=== PATIENT | male | born 1940 | race Caucasian/White ===

== ENCOUNTER → 2016-09-17 | Outpatient (CLI) | payer MEDICARE, OTHER ==
[~2016-09-17] MED LIST: ALEVE PM CAPLE1 EACH PO; FLOMAX0.4 MG PO; FLUVOXAMINE MA100 MG PO; HALDOL5 MG PO; HYDROCODON-ACE1 EAC4 PO; LORAZEPAM0.5 MG PO; MIRALAX17 GM PO; SENNA8.6 MG PO; SEROQUEL200 MG PO; TYLENOL325 MG PO; ULTRAM50 MG PO; WELLBUTRIN100 MG PO
[2016-09-17 13:24] LABS: BASOPHIL % 0.2 %; EOSINOPHIL % 0.4 %; HEMATOCRIT 39.4 % (37.0-53.0); IMMATURE GRANULOCYTE % 0.4 %; LYMPHOCYTE # 1.3 K/uL (0.8-4.0); LYMPHOCYTE % 26.5 %; MCH 30.5 pg (27.0-34.0); MCV 92.5 fl (83.0-98.0); MONOCYTE # 0.6 K/uL (0.0-1.0); MONOCYTE % 12.2 %; MPV 12.2 fl (9.4-12.4); NEUTROPHIL % 60.3 %; NRBC % 0 /100WBC (0-0.00); PLATELET COUNT 184 K/uL (150-450); RBC 4.26 M/uL (3.50-5.50); RDW-CV 13.6 % (11.9-14.6)
== END | disposition disaster alternative care site (69) ==
LOC: GLAB 12:38 → GRAD 13:30
PROVIDERS: Physician Assistant
DX: M25.571 Pain in right ankle and joints of right foot (principal); M25.471 Effusion, right ankle

== ENCOUNTER 2016-10-23 07:01 | Inpatient (IN) | payer MEDICARE, OTHER ==
[~2016-10-23] VITALS: Ht 177.8 cm; Wt 91.3 kg
--- NOTE | ~2016-10-23 | OR ---
PATIENT'S NAME: FABIAN TORRES [facility] AGE: 75 Y [address] ROOM: [address] [address] LOCATION: [facility] ADMIT DATE: 10/23/2016 OR/Procedure Report DISCHARGE DATE: FAMILY PHYSICIAN: Jose Styles MD ATTENDING PHYSICIAN: Dwaine Urrutia SURGEON: Dwaine Urrutia MD SUPERVISOR BENZENE REFINING: YUN Cornejo. DATE OF PROCEDURE: 10/23/2016 PREOPERATIVE DIAGNOSIS: Nonunion of the fusion, right ankle. POSTOPERATIVE DIAGNOSIS: Pseudarthrosis, right ankle fusion. OPERATION: Debridement, irrigation, and provisional fixation of right ankle fusion. ANESTHESIA: Subarachnoid block. 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 However, the patient continued to have pain and it appeared that the fusion did not take. The main 7.3 screws especially on the medial side had backed out and one of the transverse screws was bent or broken. It was opted to attempt to refuse this with a sliding bone graft. The patient had been having quite a bit of difficulty nonweightbearing at the first 6 weeks after his fusion partly to weakness in his nonoperative side and perhaps a little dementia. DESCRIPTION OF PROCEDURE: The patient was brought to the operating room and when satisfactory spinal anesthesia had been established, his right lower extremity was prepped and draped in an aseptic manner. The extremity was exsanguinated with elevation and pneumatic tourniquet inflated to 275 mmHg around the upper thigh. The tourniquet was up for an hour and then was let down. The anteromedial incision was approached first and an incision made in the scar and carried down through the thick swollen edematous tissue to bone. The anteromedial distal tibia and talus were exposed and the screw exposed. The screw was quite loose and cultures were taken from around it. The screw was backed out and joint fluid came out with the screw. There was actually a gap between the medial malleolus and the talus of probably a centimeter and a half worth fluid in it. This was all debrided out. The lateral incision was then made in the previous scar and carried down to the bone. The onlay graft of the lateral malleolus was loose and has gross motion there as well as gross motion at the tibiotalar joint. The 7.3 cannulated screw was exposed and it was removed. It too was loose. The two 4.5 cannulated screws crossing through the lateral malleolar onlay graft were removed, the proximal one being PATIENT'S NAME: FABIAN TORRES [facility] AGE: 75 Y [address] ROOM: [address] [address] LOCATION: [facility] ADMIT DATE: 10/23/2016 OR/Procedure Report DISCHARGE DATE: FAMILY PHYSICIAN: Jose Styles MD ATTENDING PHYSICIAN: Dwaine Urruita. The lateral malleolar fragment was then debrided and we cut with osteotome and mallet and rongeur and curettes were used to clear out the fibrous tissue. The talus was then recut with an osteotome and the tibia was recut with an osteotome. A saw was used to resect the distal 2 cm of the medial malleolus and also the lateral malleolar fragment had to be resected as well in order to be an onlay graft on the tibiotalar fusion. When recutting and reshaping of the talus and tibia had been done, the joint was visualized with the C-arm and it actually came together quite nicely. However, it was thought that failure of the fusion was most likely because the patient had walked on the construct too soon because he was unable to not walk on it. At this point, it was thought that the best treatment would be a calcaneal tibiotalar nail that would allow weightbearing. Even though it would sacrifice motion at the subtalar joint, the allowance for weightbearing would offset that disadvantage since the patient probably is not going to ambulate in the future on uneven surfaces. Therefore, it was opted to perform a provisional fixation. Two 4.0 cannulated screws were placed through the lateral malleolar onlay graft, one into the tibia and one into the talus. Another 4.5 cannulated screw was placed medially from the medial malleolar area into the talus. This actually gave a nicely aligned construct. The bone that had been resected was then packed into the screw holes the tibiotalar fusion. The thick edematous tissue subcutaneously was closed with running 0 Vicryl on both sides. Skin was closed with skin stuart. Dressings and posterior stirrup splints were applied. The patient was then sent to recovery area having tolerated the procedure well. MD JANUSZ DOMINGO/sonia /[id number] d: 10/23/16 1854 t: 10/25/16 1649, OPERATIVE SUMMARY
--- NOTE | ~2016-10-23 | OR ---
PATIENT'S NAME: FABIAN TORRES [facility] AGE: 76 Y [address] ROOM: [address] [address] LOCATION: [facility] [place] ADMIT DATE: 10/23/2016 OR/Procedure Report DISCHARGE DATE: 11/01/2016 FAMILY PHYSICIAN: Jose Styles MD ATTENDING PHYSICIAN: Dwaine Urrutia SURGEON: Dwaine Urrutia MD RURAL CARRIER ASSOCIATE: YUN Cornejo DATE OF PROCEDURE: 10/30/2016 CORRECTED PATIENT ACCOUNT INFORMATION 11/19/2016 AO PREOPERATIVE DIAGNOSIS: Failed right ankle fusion. POSTOPERATIVE DIAGNOSIS: Failed right ankle fusion. OPERATION PERFORMED: Re-fusion of subtalar and tibiotalar joints with hindfoot fusion nail. ANESTHESIA: General, ET tube. INDICATIONS: This is a 75-year-old slightly demented male who had a tibiotalar fusion for his degenerative joint disease of his right ankle about 4 or 5 months ago. It failed, and it was thought at first that a simple redo of the tibiotalar fusion would work, but at operation a week ago, he was found to have the fusion totally loose with a pseudarthrosis at the tibiotalar joint. This was thought to be because he had been walking on his fusion too soon due to his mild dementia. It was felt that a hindfoot fusion nail and allowing him weightbearing as tolerated would be a reasonable treatment plan. DESCRIPTION OF PROCEDURE: The patient was brought to the operating room, and when a satisfactory general anesthesia had been established, he was transferred to the fracture table where he was placed prone. His right lower extremity was prepped and draped in an aseptic manner. It was exsanguinated with elevation, and pneumatic tourniquet inflated to 300 mmHg around the upper thigh. The tourniquet was deflated at 1 hour of tourniquet time. The lateral wound was reopened. A guidepin from the hindfoot arthrodesis set was then drilled from the calcaneus into the center of the talus and into the tibia in order to maintain position. The 2 screws from the onlay fibular graft were then removed and the fibular onlay retracted posteriorly. The subtalar joint was then found and articular cartilage debrided with a power akilah and ring curettes. Once the subtalar joint had been cleared, the heel was impacted, and it did seem to close off the joint nicely. With the guidepin in place, a hole was then drilled through the calcaneus and the talus. This was a 13 mm hole. The hindfoot was then placed into varus and inverted, and the guidepin drilled up into the tibia. It was exchanged for a reaming calvin, and position of the reaming calvin was checked and appeared to be centered satisfactorily in the talus and tibia. The reaming calvin was over-reamed up to 13 mm. A 12 mm x PATIENT'S NAME: FABIAN TORRES [facility] AGE: 76 Y [address] ROOM: [place] [address] LOCATION: [facility] [place] ADMIT DATE: 10/23/2016 OR/Procedure Report DISCHARGE DATE: 11/01/2016 FAMILY PHYSICIAN: Jose Styles MD ATTENDING PHYSICIAN: Dwaine Urrutia 180 long hindfoot arthrodesis nail was then impacted up the tibia. The guide was used then to place two 5.0 locking screws across the calcaneus. The talar hole was left unfilled. The guide was then used to place a medial proximal interlocking screw and the dynamic screw hole. Position of the implants was checked and accepted. One of the 4.5 cannulated screws was then replaced in the fibular onlay graft, and this tightened down nicely. Position of all the implants was checked and accepted. Bone graft was packed into the subtalar joint and tibiotalar fusion. The wound was then closed with a running 2-0 Vicryl for the subcutaneous tissue and skin stuart for the skin. This was done by YUN Mathis. Dressings were applied, and the patient awakened and sent to the recovery area, having tolerated the procedure well. MD JANUSZ DOMINGO/modl /[id number] CORRECTED PATIENT ACCOUNT INFORMATION 11/19/2016 AO d: 10/30/16 1658 t: 11/20/16 0739, OPERATIVE SUMMARY
--- NOTE | ~2016-10-23 | DS ---
PATIENT'S NAME: FABIAN TORRES [facility] AGE: 76 Y [address] ROOM: [address] [address] [place] [facility] [place] ADMIT DATE: 10/23/2016 Discharge Summary DISCHARGE DATE: 11/01/2016 FAMILY PHYSICIAN: Jose Styles MD ATTENDING PHYSICIAN: Dwaine Urrutia ADMITTING DIAGNOSIS: Failed ankle fusion. PROCEDURE: Hindfoot fusion with nail. HOSPITAL COURSE: The patient was admitted. A 2-stage hindfoot ankle fusion was performed with removal of the old hardware. Hospitalist consult was obtained. The patient was made nonweightbearing on the right ankle in between the staged procedures. The patient was put on Xarelto 10 mg p.o. daily for postoperative DVT prophylaxis. Postop day 2, he had some moderate pain. Splint was intact. The patient was made n.p.o. again and the formal hindfoot fusion was performed with an indwelling nail. Xarelto was held. Ancef 2 g was used preoperatively for standard prophylaxis. A 12-mm hindfoot nail was inserted. The patient was made weightbearing as tolerated after the nail was placed. Postoperatively, boot walker was ordered. FINISHING DEPARTMENT SUPERVISOR is intact to the operative right foot. Tubbs catheter was removed on postop day 2. Wound nurses were consulted regarding some sacral redness. Arrangements were made for the patient to be transferred to the long-term. DISCHARGE INSTRUCTIONS: Weight bear as tolerated. O2 titrated per nasal cannula. Keep sats above 90%. OT, PT as tolerated. Follow up with Dr. Styles in 5 to 7 days. Follow up with us in 2 weeks. COMORBIDITIES: Hypertension, COPD, bipolar, chronic constipation, chronic hypoxic respiratory failure, and BPH. YUN JAY FOR MD ANEGLICA DOMINGO/calebl /[id number] d: 11/28/16 0401 t: 12/11/16 1243, DISCHARGE SUMMARY
[2016-10-28 20:06] LABS: BASOPHIL % 0.1 %; EOSINOPHIL % 0.3 %; HEMOGLOBIN 10.2 g/dL (11.0-16.0); IMMATURE GRANULOCYTE % 0.4 %; LYMPHOCYTE # 1.5 K/uL (0.8-4.0); LYMPHOCYTE % 22.6 %; MCH 30.6 pg (27.0-34.0); MONOCYTE % 14.7 %; MPV 12.1 fl (9.4-12.4); NEUTROPHIL # (ANC) 4.2 K/uL (1.4-9.0); NEUTROPHIL % 61.9 %; NRBC % 0 /100WBC (0-0.00); RBC 3.33 M/uL (3.50-5.50); RDW-CV 13.2 % (11.9-14.6); WBC 6.8 K/uL (4.0-11.0)
[2016-10-28 20:07] LABS: HEMATOCRIT 30.3 % (37.0-53.0); MCHC 33.7 gm/dL (32.0-36.5); PLATELET COUNT 222 K/uL (150-450)
[2016-10-30 05:02] LABS: BASOPHIL % 0.2 %; EOSINOPHIL % 0.6 %; HEMATOCRIT 31.2 % (37.0-53.0); HEMOGLOBIN 10.5 g/dL (11.0-16.0); IMMATURE GRANULOCYTE % 0.2 %; LYMPHOCYTE % 38.1 %; MCH 30.9 pg (27.0-34.0); MCHC 33.7 gm/dL (32.0-36.5); MCV 91.8 fl (83.0-98.0); MONOCYTE # 1.1 K/uL (0.0-1.0); MONOCYTE % 21.3 %; MPV 11.9 fl (9.4-12.4); NEUTROPHIL # (ANC) 2.1 K/uL (1.4-9.0); NEUTROPHIL % 39.6 %; NRBC % 0 /100WBC (0-0.00); PLATELET COUNT 229 K/uL (150-450); RDW-CV 13.3 % (11.9-14.6); WBC 5.2 K/uL (4.0-11.0)
[2016-10-30 05:14] LABS: INR - (THERAPEUTIC) 1.02 (0.92-1.07); PROTIME 10.7 SECONDS (9.8-11.4); PTT 27 SECONDS (25-32)
[2016-10-30 19:15] LABS: HEMATOCRIT 28.9 % (37.0-53.0); HEMOGLOBIN 9.7 g/dL (11.0-16.0)
[2016-10-31 05:31] LABS: HEMATOCRIT 27.4 % (37.0-53.0); HEMOGLOBIN 9.1 g/dL (11.0-16.0); MCH 30.5 pg (27.0-34.0); MCHC 33.2 gm/dL (32.0-36.5); MCV 91.9 fl (83.0-98.0); MPV 11.7 fl (9.4-12.4); PLATELET COUNT 226 K/uL (150-450); RBC 2.98 M/uL (3.50-5.50); RDW-CV 13.4 % (11.9-14.6); WBC 7.4 K/uL (4.0-11.0)
[2016-10-31 06:06] LABS: ABSOLUTE NEUTROPHIL CT (ANC) 3.3 K/uL (1.4-9.0); BANDED NEUTROPHIL # 0.2 K/uL (0.0-0.1); BANDED NEUTROPHILS % 3 %; LYMPHOCYTE # 2.6 K/uL (0.8-4.0); LYMPHOCYTE % 35 %; MONOCYTE # 1.4 K/uL (0.0-1.0); SEGMENTED NEUTROPHIL # 3.1 K/uL (1.4-9.0); SEGMENTED NEUTROPHIL % 42 %
== END 2016-11-01 12:25 | DRG 493 ==
LOC: GSDC 07:01 → G3N 07:01 → GPOC 11:00 → G3N 14:10 → GSDC 14:11 → G3N 14:11 → GMSU 10-25 16:42
PROVIDERS: Internal Medicine; ADMIT Orthopaedic Surgery
PROC: 0SHF04Z Insertion of Internal Fixation Device into Right Ankle Joint, Open Approach (ICD-10-PCS; principal; 2016-10-23)
PROC: 0SPF04Z Removal of Internal Fixation Device from Right Ankle Joint, Open Approach (ICD-10-PCS; principal; 2016-10-23)
PROC: 0SGF04Z Fusion of Right Ankle Joint with Internal Fixation Device, Open Approach (ICD-10-PCS; principal; 2016-10-23)
DX: M96.0 Pseudarthrosis after fusion or arthrodesis (principal); J96.11 Chronic respiratory failure with hypoxia; J44.9 Chronic obstructive pulmonary disease, unspecified; I10 Essential (primary) hypertension; Y83.1 Surgical operation with implant of artificial internal device as the cause of abnormal reaction of the patient, or of later complication, without mention of misadventure at the time of the procedure; E66.9 Obesity, unspecified; F31.9 Bipolar disorder, unspecified; F42.9 Obsessive-compulsive disorder, unspecified; M19.071 Primary osteoarthritis, right ankle and foot; N40.0 Benign prostatic hyperplasia without lower urinary tract symptoms; K59.09 Other constipation; Z87.891 Personal history of nicotine dependence; Z90.49 Acquired absence of other specified parts of digestive tract; Z88.8 Allergy status to other drugs, medicaments and biological substances
CPT/HCPCS: C1713; J0690; J2001; J2250; J2270; J7030; J7120; P9045